=== PATIENT | female | born 1935 | race Caucasian/White ===

== ENCOUNTER 2021-08-22 20:46 | Inpatient (IN) | payer OTHER ==
[~2021-08-22] VITALS: Ht 152.4 cm; Wt 68.9 kg
[~2021-08-22 20:46] MED LIST: ALBU8.5H4 IH; FLUT12AE5 IH; LEVO75TA PO; OMEP20CA15 PO; TIOT18CA3 IH
--- NOTE | 2021-08-22 21:10 | NUR ---
[id number] FROM PRISON FOR SYNCOPAL EPISODE "FELT LIGHTHEADED AND WEAK"+KO HIT BACK OF HEAD +LAC +NECKPAIN -BLOOD THINNERS. TDAP UTD. BS135. PLACED COMFORTABLY IN BED. VITALS CHECKED. ATTACHED TO MONITOR. BODY CHECK DONE.
--- NOTE | 2021-08-22 21:13 | NUR ---
Note anmoliain in EDM - 08/22/21 at 2117 by ISMAEL [id number] FROM [facility]FWAY FOR SYNCOPAL EPISODE "FELT LIGHTHEADED AND WEAK" +KO HIT BACK OF HEAD +LAC +NECKPAIN -BLOOD THINNERS. TDAP UTD. BS135. PATIENT ALERT AND ORIENTED X3. BROUGHT IN ON STRETCHER AND IN C COLLAR AWAITING MD CONNER.
--- NOTE | 2021-08-22 21:33 | NUR ---
PATIENT HAS C COLLAR. DR BANUELOS TRIED TO CHECK THE LACERATION WOUND AT THE HEAD AND FIND IT DIFFICULT. DECIDED TO HAVE EMT WASH HAIR AFTER CT SCAN/XRAY DONE AND HAVE C COLLAR REMOVE. PATIENT SUSTAINED SKIN TEAR ON RIGHT FOREARM. WITH PERIPHERAL LINE ON RIGHT HAND G20.
--- NOTE | 2021-08-22 21:41 | NUR ---
COVID SWAB DONE AND SENT TO LAB
--- NOTE | 2021-08-22 21:41 | NUR ---
PROPERTY MANAGEMENT INTERN AT BEDSIDE.
--- NOTE | 2021-08-22 21:44 | NUR ---
PATIENT WHEELED TO RADIOLOGY ROOM
[2021-08-22] MEDS ORDERED: IV NS 0.9% 500 ML IV ONE (22:00)
--- NOTE | 2021-08-22 22:00 | NUR ---
PATIENT CANNOT GIVE URINE SAMPLE AT THIS TIME. SHE REFUSED TO HAVE AN IN AND OUT SUTTON CATH JUST TO COLLECT SAMPLES.
[2021-08-22 22:46] LABS: BASOPHILS % (AUTO) 0.2 % (0.0-2.0); EOSINOPHILS % (AUTO) 0.2 % (0.0-6.0); HEMATOCRIT 38 % (33-45); HEMOGLOBIN 12.3 g/dL (11.5-14.8); LYMPHOCYTES # (AUTO) 1.1 K/uL (0.8-4.8); LYMPHOCYTES % (AUTO) 5.5 % (20.0-44.0); MEAN CORPUSCULAR HGB CONC 33 g/dl (31.0-36.0); MEAN CORPUSCULAR VOLUME 86 fL (82-100); MONOCYTES # (AUTO) 1.8 K/uL (0.1-1.30); MONOCYTES % (AUTO) 8.9 % (2.0-12.0); NEUTROPHILS # (AUTO) 17.1 K/uL (1.8-8.9); NEUTROPHILS % (AUTO) 85.2 % (43.0-81.0); PLATELET COUNT (AUTO) 230 K/uL (150-450); RED BLOOD CELL COUNT(AUTO) 4.34 MIL/uL (4.0-5.2)
[2021-08-22 22:58] LABS: CALCIUM, SERUM 8.5 mg/dL (8.5-10.1); CARBON DIOXIDE 26 mmol/L (21-32); CHLORIDE 109 mmol/L (98-107); CREATININE 1.2 mg/dL (0.6-1.3); GLUCOSE 121 mg/dL (74-106); POTASSIUM 3.9 mmol/L (3.5-5.1); SODIUM SERUM 142 mmol/L (136-145); UREA NITROGEN, BLOOD 23 mg/dL (7-18)
--- NOTE | 2021-08-22 23:00 | NUR ---
DAUGHTER LUKAS [phone]
[2021-08-22 23:03] LABS: ALANINE AMINOTRANSFERASE 14 U/L (12-78); ALBUMIN 3.4 g/dL (3.4-5.0); ALKALINE PHOSPHATASE 70 U/L (46-116); ASPARTATE AMINOTRANSFERASE 17 U/L (15-37); BILIRUBIN,DIRECT 0.1 mg/dL (0.0-0.2); BILIRUBIN,TOTAL 0.2 mg/dL (0.2-1.0); TOTAL PROTEIN, SERUM 6.2 g/dL (6.4-8.2)
[2021-08-22] MEDS ORDERED: ASPIRIN 325 MG TABLET PO ONE (23:30)
--- NOTE | 2021-08-22 23:30 | NUR ---
PATIENT STILL CANNOT GIVE URINE SAMPLE AND REFUSES TO HAVE A CATHETER. SHE SAID SHE WILL LET US KNOW IF CAN PASS URINE.
[2021-08-22] MEDS ORDERED: ASPIRIN 325 MG TABLET ONE (23:46)
--- NOTE | 2021-08-23 00:43 | NUR ---
RECEIVED CRITICAL RESULT 338.3. DR XIONG MADE AWARE
--- NOTE | 2021-08-23 02:06 | NUR ---
PATIENT IS ASLEEP BUT AROUSABLE.
--- NOTE | 2021-08-23 04:14 | NUR ---
Shanthi posadas in [facility] - 08/23/21 at [address] Markel Goldman for Surgery Consult
--- NOTE | 2021-08-23 04:41 | NUR ---
CALLED 3W, KAY KIM WILL CALL ME FOR REPORT.
--- NOTE | 2021-08-23 05:00 | NUR ---
URINE SPECIMEN SENT TO LAB.
[2021-08-23 05:26] LABS: BILIRUBIN,URINE SMALL (NEGATIVE); COLOR,URINE DARK YELLOW (YELLOW); LEUKOCYTE ESTERASE ,URINE SMALL (NEGATIVE); NITRITE, URINE NEGATIVE (NEGATIVE); PH,URINE 5.5 (5.0-8.0); PROTEIN,URINE 100 mg/dl (NEGATIVE); UGLUCOSE NEGATIVE (NEGATIVE); UROBILINOGEN,URINE 0.2 EU/dL (0.2)
--- NOTE | 2021-08-23 05:27 | NUR ---
REPORT GIVEN TO KAY KIM.
[2021-08-23 05:34] LABS: BACTERIA,URINE Few /HPF (None Seen); RBC,URINE 0-2 /HPF (0-2); SQUAMOUS EPITHELIAL CELL,UR Few /HPF (None Seen); WBC,URINE 21-50 /HPF (0-3)
[2021-08-23 05:35] LABS: MUCUS,URINE Few /LPF (None Seen)
--- NOTE | 2021-08-23 06:16 | NUR ---
TRANSFERRED PATIENT TO [facility].
--- NOTE | 2021-08-23 06:40 | NUR ---
CIRCUS RIDERCOPPER ROLLER HANDLER PRINTING NOTE PATIENT ARRIVED ON UNIT, ALERT/ORIENTED X 3, PATIENT ABLE TO MAKE NEEDS KNOWN. PATIENT ON EXTERNAL RECYCLING PROGRAM MANAGER READING SINUS RHYTHM, HR: 64. PATIENT STABLE ON 2 LPM OF OXYGEN VIA NASAL CANNULA, PER PATIENT SHE USES 2 L OF OXYGEN AT HOME WELL. IV ACCESS ON RIGHT WRIST #20G INTACT AND FLUSHING WELL, HOWEVER LEAKING. PATIENT NOTED WITH POSTERIOR HEAD LACERATION ( ONE STAPLE PLACED IN ER), LEFT WRIST AND BILATERAL FEET WOUNDS, MULTIPLE SKIN TEARS ON RIGHT ARM AND BILATERAL ARM BRUISING, PHOTOS OF WOUNDS TAKEN. PATIENT HAS UPPER DENTURES AND GLASSES, BELONGINGS DOCUMENTED AND BELONGINGS LIST PLACED IN CHART. SAFETY MEASURES IN PLACE: CALL LIGHT WITHIN REACH, SIDE RAILS UP X 2, BED LOCKED IN LOWEST POSITION, BED ALARM ON. WILL ENDORSE TO DAY SHIFT NURSE FOR CONTINUITY OF CARE
--- NOTE | 2021-08-23 06:54 | NUR ---
INSIGHTS ANALYST NOTE FAXED MEDICATION ORDERS TO PHARMACY
[2021-08-23] MEDS ORDERED: LEVO50TA PO (06:55)
[2021-08-23] MEDS ORDERED: UMEC62.5 INH (06:55)
[2021-08-23] MEDS ORDERED: ESCI10TA PO (06:55)
[2021-08-23] MEDS ORDERED: IPRATROPIUM NEB FS 0.5 MG/2.5 ML AMPUL.NEB NEB PRN (07:00)
[2021-08-23] MEDS ORDERED: LEVOFLOXACIN (250MG) 250 MG TABLET PO ONE (07:30)
[2021-08-23] MEDS ORDERED: HYDROCODONE/APAP 5/325MG TABLET PO PRN (08:00)
[2021-08-23] MEDS ORDERED: ALBUTEROL FS 2.5 MG/0.5 ML VIAL.NEB NEB PRN (08:00)
[2021-08-23] MEDS ORDERED: ACETAMINOPHEN 325 MG TABLET PO PRN (08:00)
[2021-08-23] MEDS: Potassium Chloride 20 MEQ in IV NS 0.9% 1,000 ML IV SCH ×2 (08:41→21:25)
[2021-08-23] MEDS: ASPIRIN EC 81 MG TABLET.DR PO SCH (08:42)
--- NOTE | 2021-08-23 19:49 | NUR ---
FISH HATCHERY SPECIALIST OPENING NOTES PATIENT ARRIVED ON UNIT, ALERT/ORIENTED X 3, PATIENT ABLE TO MAKE NEEDS KNOWN. PATIENT ON EXTERNAL WELDER ASSISTANT READING SINUS RHYTHM, HR: 64. PATIENT STABLE ON 2 LPM OF OXYGEN VIA NASAL CANNULA, PER PATIENT SHE USES 2 L OF OXYGEN AT HOME WELL. SAFETY MEASURES IN PLACE: CALL LIGHT WITHIN REACH, SIDE RAILS UP X 2, BED LOCKED IN LOWEST POSITION, BED ALARM ON. WILL CONTINUE TO MONITOR.
[2021-08-23 20:00] VITALS: BP 168/56
[2021-08-23] MEDS ORDERED: ZOLPIDEM TARTRATE 5 MG TABLET PO PRN (22:00)
[2021-08-23] MEDS ORDERED: ATORVASTATIN 10 MG TABLET PO SCH (22:00)
[2021-08-24] VITALS: BP_SYST 140; BP_SYST 166; BP_SYST 168; BP_DIAS 70; BP_DIAS 80
--- NOTE | 2021-08-24 01:18 | NUR ---
rn telephonic notes prn norco 5-325mg given for back pain tolerated well.
[2021-08-24 03:09] VITALS: BP 159/70
[2021-08-24 05:29] VITALS: BP 150/70
--- NOTE | 2021-08-24 06:34 | NUR ---
POLICY CHANGE CLERK CLOSING NOTES PATIENT ARRIVED ON UNIT, ALERT/ORIENTED X 3, PATIENT ABLE TO MAKE NEEDS KNOWN. PATIENT ON EXTERNAL MANAGER IT TRAINING READING SINUS RHYTHM, HR: 6OS. PATIENT STABLE ON 2 LPM OF OXYGEN VIA NASAL CANNULA, PER PATIENT SHE USES 2 L OF OXYGEN AT HOME WELL. SAFETY MEASURES IN PLACE: CALL LIGHT WITHIN REACH, SIDE RAILS UP X 2, BED LOCKED IN LOWEST POSITION, BED ALARM ON. WILL CONTINUE TO MONITOR.
[2021-08-24 07:14] LABS: BASOPHILS # (AUTO) 0.1 K/uL (0.0-0.2); BASOPHILS % (AUTO) 0.8 % (0.0-2.0); EOSINOPHILS % (AUTO) 5.4 % (0.0-6.0); HEMATOCRIT 36 % (33-45); HEMOGLOBIN 12.1 g/dL (11.5-14.8); LYMPHOCYTES # (AUTO) 2.6 K/uL (0.8-4.8); LYMPHOCYTES % (AUTO) 26.3 % (20.0-44.0); MEAN CORPUSCULAR HGB CONC 33 g/dl (31.0-36.0); MEAN CORPUSCULAR VOLUME 86 fL (82-100); MONOCYTES # (AUTO) 0.8 K/uL (0.1-1.30); MONOCYTES % (AUTO) 7.7 % (2.0-12.0); NEUTROPHILS % (AUTO) 59.8 % (43.0-81.0); PLATELET COUNT (AUTO) 229 K/uL (150-450); RED BLOOD CELL COUNT(AUTO) 4.25 MIL/uL (4.0-5.2)
[2021-08-24] MEDS ORDERED: LEVOTHYROXINE SODIUM 50 MCG TABLET PO SCH (07:30)
[2021-08-24] MEDS ORDERED: OMEPRAZOLE 20 MG CAPSULE.DR PO SCH (07:30)
[2021-08-24] MEDS ORDERED: PANTOPRAZOLE 40 MG TABLET.DR PO SCH (07:30)
[2021-08-24 07:35] LABS: CALCIUM, SERUM 8.8 mg/dL (8.5-10.1); POTASSIUM 3.8 mmol/L (3.5-5.1)
[2021-08-24 07:54] LABS: THYROID STIMULATING HORMONE 2.563 uIU/mL (0.358-3.74)
[2021-08-24 08:00] VITALS: BP 135/63
[2021-08-24] MEDS ORDERED: LEVOFLOXACIN (250MG) 250 MG TABLET PO SCH (08:00)
--- NOTE | 2021-08-24 08:01 | NUR ---
RN OPENING NOTE PATIENT AWAKE IN BED RESTING, A/O X 3-4. NO S/S OF PAIN NOTED AT THIS TIME. ON 2L OXYGEN, NO DISTRESS OR SHORTNESS OF BREATH NOTED. IV ACCESS, RFA #20G, INTACT PATENT AND FLUSHING WELL. PATIENT ON EXTERNAL TOBACCO DRIER OPERATOR WITH CURRENT READING OF SR AND HR OF 68, NO CARDIAC DISTRESS NOTED. FALL AND SAFETY MEASURES IN PLACE, BED ALARM ON, BED IN LOW AND LOCK POSITION, CALL LIGHT AND TABLE WITHIN EASY REACH, SIDE RAILS UP X2. WILL CONTINUE TO MONITOR.
[2021-08-24] MEDS: ASPIRIN EC 81 MG TABLET.DR PO SCH (08:47)
[2021-08-24] MEDS ORDERED: CARVEDILOL 3.125 MG TABLET PO SCH (09:00)
[2021-08-24] MEDS ORDERED: ESCITALOPRAM OXALATE (10 MG) 10 MG TABLET PO SCH (09:00)
[2021-08-24] MEDS: Potassium Chloride 20 MEQ in IV NS 0.9% 1,000 ML IV SCH (10:48)
[2021-08-24 12:00] VITALS: BP 152/71
[2021-08-24] MEDS ORDERED: LEVO750T46 PO (13:52)
--- NOTE | 2021-08-24 16:38 | NUR ---
MEDICAL DIRECTOR OCCUPATIONAL HEALTH NOTE PATIENT DISCHARGE IN STABLE CONDITION. A/O X4. V/S TAKEN, STABLE AND RECORDED. NO IV ACCESS. PATIENT REFUSED SKIN ASSESSMENT AND PICTURES. NAME ARM BAND REMOVED. ALL BELONGINGS CHECKED AND SIGNED. HEALTH TEACHING AND DISCHARGE INSTRUCTIONS GIVEN AND VERBALIZED UNDERSTANDING. PATIENT AND PATIENT'S DAUGHTER WERE INSTRUCTED HOW TO CARE AND WHERE TO GO FOR RYLAN REMOVAL IN 10 DAYS. PATIENT LEFT UNIT VIA WHEELCHAIR, WITH NO SIGNS OF DISTRESS, ACCOMPANIED BY [facility] TO THE LOBBY. CHARGE NURSE AWARE OF DISCHARGED.
== END 2021-08-24 17:03 | disposition home or self-care (01) | DRG 872 ==
LOC: ER 21:39 → TELE 08-23 04:40
PROVIDERS: ADMIT Internal Medicine; ATTEND Internal Medicine
DX: A41.9 Sepsis, unspecified organism (principal); N39.0 Urinary tract infection, site not specified; M62.82 Rhabdomyolysis; Z20.822 Contact with and (suspected) exposure to COVID-19; E03.9 Hypothyroidism, unspecified; J44.9 Chronic obstructive pulmonary disease, unspecified; Z79.890 Hormone replacement therapy; Z79.51 Long term (current) use of inhaled steroids; Z79.899 Other long term (current) drug therapy; S01.01XA Laceration without foreign body of scalp, initial encounter; W18.30XA Fall on same level, unspecified, initial encounter; Y92.099 Unspecified place in other non-institutional residence as the place of occurrence of the external cause; I95.1 Orthostatic hypotension; K21.9 Gastro-esophageal reflux disease without esophagitis; E86.0 Dehydration
CPT/HCPCS: 36415; 70450-TC; 71045-TC; 72125-TC; 80048-TC; 80076-TC; 81001; 82550-TC; 82553; 84439-TC; 84443-TC; 84484-TC; 85025-TC; 85730-TC; 86850-TC; 87081-TC; 87086-TC; 93307-TC; 93880-TC; 94799-TC; 97116-TC; 97530-TC; A6403; C9803; G0378; J3480; J7030; J7040